=== PATIENT | female | born 1990 | race Caucasian/White ===

== ENCOUNTER 2025-01-20 07:39 | Inpatient (IN) ==
[2025-01-20] MEDS ORDERED: OXYTOCIN 30 UNITS/NSS 30 UNITS/500 ML BAG IV PRN (07:49)
[2025-01-20] MEDS ORDERED: LIDOCAINE 1% LOCAL 20 ML VIAL INFIL PRN (07:49)
[2025-01-20 08:57] LABS: Hematocrit (blood only) 37.9 % (37.0-47.0); Hemoglobin 12.9 g/dl (12.0-16.0); Mean Corpuscular Hemoglobin 29.5 pg (25.0-34.0); Mean Corpuscular Volume 86.7 fL (80.0-100.0); Platelet Count 135 K/uL (130-400); RDW Standard Deviation 41.1 fL (36.4-46.3); Red Blood Count 4.37 M/uL (4.20-5.40); White Blood Count 13.32 K/ul (4.8-10.8)
[2025-01-20] MEDS: LACTATED RINGER'S 1,000 ML IV PRN (10:03)
[2025-01-20] MEDS: OXYTOCIN 30 UNITS/NSS 30 UNITS/500 ML BAG IV PRN (10:03)
--- NOTE | 2025-01-20 10:25 | History & Physical Report ---
Date of Service January 20, 2025 Assessment & Plan (1) 40 weeks gestation of : Plan Downs bulb out Pitocin Arom when indicated Monitor tracing, category 1 Admission and Anticipated Discharge Date Admission Date: January 20, 2025 History of Present Illness Chief Complaint: IOL Primary Care Provider: YOANA Yarbrough 34 yo at 40w2d admitted for IOL for postdates. complications include Rh- mom, and Hep B non-immune. She states she had contractions about 30 minutes apart yesterday but has not had them today. Denies fluid loss and bloody show. Positive movement. She attends her OB appointments regularly. Denies taking any medications during . Downs bulb placed yesterday, removed today AM. Denies REECE, CP, SOB, LE pain. She is having some mild nausea. She had mild headaches for past few days but states it gets better when she eats and drinks water. Denies changes in vision, RUQ pain, swelling. GBS neg, RH- Allergies Allergy/AdvReac Type Severity Reaction Status Date / Time mold Allergy Congested Uncoded 01/20/25 08:06 Home Medications Medication Instructions Recorded Confirmed Type breast pump #1 ea 08/31/24 01/19/25 Rx vits no.130-ferrous fum 1 tab PO DAILY 01/20/25 01/20/25 History 27 mg iron-folic acid 800 mcg tablet ( Vitamin) Patient History Medical History Depression Anxiety Asthma RARE RES. INH USE Surgical History Status post right foot surgery screw in place S/P carpal tunnel release Hx of foot surgery BILAT bunionectomy x2 and R foot fx History of tooth extraction WISDOM TEETH Family History Father Colorectal cancer bowel cancer Hypertension Denies family history of Ovarian cancer Breast cancer Social History Smoking Status: Never smoker Second Hand Exposure: No; Do You Dip or Chew Tobacco: No; Hx Alcohol Use: No Hx Substance Use: No Preferred Language: Luxembourgish Communication Ability: Effective Machine Ii Engraver Required: No Beliefs That Will Affect Care: None marital status: marital status details: Juan Russell (37) [phone] Current Living Situation: Spouse Current Living Situation Comment: lives with spouse, cats-spouse changing litter current occupational status: employed current occupation: [employer] How many Children do You have: 0 Other Information That Helps Us Care for You: No Feels Safe at Home: Yes Safety Concerns: Feels Safe At This Time Childhood Exposure to Second-Hand Smoke: No Diet: regular caffeine: Yes Dental Care, Regularly: Yes Physical Activity Frequency: 5-6 Times per Week Seatbelt Use: always Sunscreen Use: Yes Assistive Devices: None OB History : 1 Full term: 0 Premature: 0 Total Number of Induced Abortions: 0 Total Number of Spontaneous Abortions: 0 Ectopics: 0 Multiple births: 0 Number of Living Children: 0 [employer] PRACTITIONER History Last menstrual period: Yes Menstrual reliability: definite Flow: normal Menstrual regularity: regular Monthly: Yes Age at menarche: 18 On control pills at conception: No Date of positive home test: 05/13/24 Menstrual history comments: cycles 28-29 days Details: last pap 3 years ago Review of Systems All systems reviewed & are unremarkable except as noted in HPI & below Physical Exam Constitutional: WD/WN, vitals as above Respiratory: normal respiratory effort, lungs clear to auscultation Cardiovascular: RRR, no murmur, no edema Gastrointestinal (Abdomen): normal bowel sounds, soft, nontender, no hepatosplenomegaly +gravid Skin: no rashes, warm and dry Genitourinary: per Dr. Partida Results & Data Vital Signs (Past 12 Hours) Vital Signs Temp Pulse Resp BP 01/20/25 10:06 94 H 01/20/25 10:06 122/75 01/20/25 07:55 37.3 C 20 01/20/25 07:49 109 H 127/72 Laboratory Results OB Labs: Blood Type A Negative 06/23/24 Antibody Screen NEGATIVE 10/26/24 Hgb 12.5 g/dl (12.0-16.0) 10/26/24 Hct 36.9 % (37.0-47.0) L 10/26/24 MCV 88.1 fL (80.0-100.0) 06/23/24 Plt Count 261 K/uL (130-400) 06/23/24 Rubella IgG Antibody Immune (Immune) 06/23/24 Treponema pallidum Ab Negative (Negative) 10/26/24 Hep Bs Antigen Negative (Negative) 06/23/24 Hepatitis C Antibody Negative (Negative) 06/23/24 HIV 1&2 Ab/P24 Ag 4thGn Negative (Negative) 06/23/24 Glucose 1 Hr 50 gm 122 mg/dl (70-130) 10/26/24 Maternal Serum AFP 27.8 ng/mL 08/11/24 OB Optional Labs: Chlamydia trachomatis RNA Not Detected (NotDetected) 06/23/24 Neisseria gonorrhoeae RNA Not Detected (NotDetected) 06/23/24 Thyroid Stimulating Hormone (TSH) 3.780 uIu/ml (0.300-4.500) 08/14/18 Alpha Fetoprotein Triple Screen SEE NOTE 08/11/24 Monitoring External Monitor HR: 150 Variability: moderate Accelerations: present Decelerations: absent Contractions: absent Category 1 tracing Supervising Physician Co-Signing Physician Notes Resident Physician Supervision Note: I interviewed and examined the patient. Discussed with Dr. Gibbs and agree with findings and plan as documented in the note. Any exceptions or clarifications are listed here: IOL @ 40 07/02, downs bulb out, /-3, pitocin. Plans for epidural. Documented By: Miriam Partida DO Resident Activity Tracking Resident Involvement: Resident Care Provided Care Provided: OB Delivery
[2025-01-20] MEDS ORDERED: NALOXONE HCL 1 MG in SODIUM CHLORIDE 0.9% 1,000 ML IV PRN (12:02)
[2025-01-20] MEDS ORDERED: NALBUPHINE HCL INJ 10 MG/ML AMP IV PRN (12:02)
[2025-01-20] MEDS ORDERED: BUPIVACAINE 0.25% PF 30 ML VIAL EPI PRN (12:02)
[2025-01-20] MEDS ORDERED: SODIUM CHLORIDE 0.9% PF INJ 10 ML VIAL EPI PRN (12:02)
[2025-01-20] MEDS ORDERED: ROPIVACAINE 0.5% PF 5 MG/ML 20 ML VIAL EPI PRN (12:02)
[2025-01-20] MEDS ORDERED: LIDOCAINE 2% MPF LOCAL 5 ML VIAL EPI PRN (12:02)
[2025-01-20] MEDS ORDERED: ONDANSETRON INJ 2 MG/ML 2 ML VIAL IV PRN (12:02)
[2025-01-20] MEDS ORDERED: diphenhydrAMINE 50 MG/ML VIAL IV PRN (12:02)
[2025-01-20] MEDS ORDERED: NALOXONE HCL 0.4 MG/1 ML VIAL/CARP IV PRN (12:02)
--- NOTE | 2025-01-20 12:02 | Anesthesiology Consultation ---
Date of Service January 20, 2025 Assessment & Plan ASA ASA2 Proposed Anesthesia Anesthesia Type: Labor Epidural Risk / Benefits Reviewed With: PT / POA / Parent / Guardian, Accepts Plan and Informed Consent Obtained History Height/Weight Height: 5 ft 2 in Weight: 94.801 kg Allergies Allergy/AdvReac Type Severity Reaction Status Date / Time mold Allergy Congested Uncoded 01/20/25 08:06 Medications Home Medications Medication Instructions Recorded Confirmed Last Taken breast pump #1 ea 08/31/24 01/19/25 Unknown vits no.130-ferrous fum 1 tab PO DAILY 01/20/25 01/20/25 01/19/25 12:00 27 mg iron-folic acid 800 mcg tablet ( Vitamin) Active Medications Generic Name Dose Route Start Last Admin Trade Name Freq PRN Reason Stop Dose Admin Oxytocin 30 units in 500 mls @ 5 mls/hr 01/20/25 07:49 01/20/25 11:15 Pitocin 30 Units/Nss IV 01/23/25 07:48 0.3 units/hr .Q24H PRN 5 mls/hr Labor Induction/Augmentation Titration Protocol 0.3 UNITS/HR Lactated Ringer's 1,000 mls @ 125 mls/hr 01/20/25 07:49 01/20/25 10:03 Lr IV 01/22/25 07:48 125 mls/hr .Q8H PRN Administration L&D Protocol Protocol Past Medical History Medical History Depression Anxiety Asthma RARE RES. INH USE Exercise / Class Metabolic Activity II 4-5 Yardwork/Stairs/Walk up hill Past Family History Family History Father Colorectal cancer bowel cancer Hypertension Denies family history of Ovarian cancer Breast cancer Past Surgical History Surgical History Status post right foot surgery screw in place S/P carpal tunnel release Hx of foot surgery BILAT bunionectomy x2 and R foot fx History of tooth extraction WISDOM TEETH Past Anesthesia History No Hx of Anesthesia Complications and No Family Hx of Anesthesia Complications History of PONV No Hx of PONV and No Hx of Motion Sickness Social History Smoking Status: Never smoker Do You Dip or Chew Tobacco: No Hx Alcohol Use: No alcohol intake frequency: a few times a month Hx Substance Use: No substance use type: does not use Substance Use Type Other:: DAILY USE /ADVISED Review of Systems denies fever/cough/ colds/ chest pain/ SOB/ SANDIE denies SANDIE Physical Exam Vital Signs Last Vital Signs Temp 37.0 C 01/20/25 13:17 Pulse 69 01/20/25 14:51 Resp 20 01/20/25 13:17 BP 122/71 01/20/25 14:47 Pulse Ox 99 01/20/25 14:51 ENMT Mouth: no TMJ abnormality and no dentition abnormality Thyromental Distance: > or= 3.5 Finger Breadths Mallampati Class: II Neck neck extension not limited Respiratory normal respiratory effort; no respiratory distress Auscultation: lungs clear to auscultation bilaterally Cardiovascular Rate/Rhythm: regular rate and regular rhythm Neurologic moves all extremities Psychiatric Orientation: alert and oriented x 3 Testing Laboratory Results 01/20/25 08:23 Blood Type A Negative 01/20/25 08:23 Antibody Screen NEGATIVE 01/20/25 08:23
[2025-01-20] MEDS: LIDOCAINE 2%/EPINEPHRINE 1:200,000 20 ML PF ONE (12:34)
[2025-01-20] MEDS: BUPIVACAINE 0.25% PF 30 ML VIAL EPI STA (12:34)
[2025-01-20] MEDS: BUPIVACAINE 0.25% PF 30 ML VIAL ONE (12:34)
[2025-01-20] MEDS: LIDOCAINE 2%/EPINEPHRINE 1:200,000 20 ML PF EPI STA (12:35)
[2025-01-20] MEDS: SODIUM CHLORIDE 0.9% PF INJ 10 ML VIAL EPI STA (12:35)
[2025-01-20] MEDS: fentANYL 2 MCG/ML BUPIVacaine 0.125%-NSS 100ML BAG ONE (12:36)
--- NOTE | 2025-01-20 13:22 | Labor Progress Brief Note ---
Date of Service January 20, 2025 Subjective Comfortable with epidural. FHT Cat 1 [facility] Q 2 SVE 4-5/80/-2 AROM clear fluid. Assessment & Plan Admission and Anticipated Discharge Date Admission Date: January 20, 2025 Results & Data Vital Signs (Past 12 Hours) Vital Signs Temp Pulse Resp BP Pulse Ox 01/20/25 13:17 89 L 01/20/25 13:17 86 01/20/25 13:16 99 01/20/25 13:16 94 H 01/20/25 13:11 100 01/20/25 13:11 82 01/20/25 13:06 99 01/20/25 13:06 80 01/20/25 13:01 100 01/20/25 13:01 87 01/20/25 12:59 81 01/20/25 12:59 120/70 01/20/25 12:56 98 01/20/25 12:56 96 H 01/20/25 12:54 82 01/20/25 12:54 122/60 01/20/25 12:51 99 01/20/25 12:51 83 01/20/25 12:48 95 H 01/20/25 12:48 115/64 01/20/25 12:46 99 01/20/25 12:46 87 01/20/25 12:45 83 01/20/25 12:45 113/67 01/20/25 12:41 99 01/20/25 12:41 80 01/20/25 12:37 83 01/20/25 12:37 123/58 L 01/20/25 12:36 100 01/20/25 12:36 87 01/20/25 12:35 80 01/20/25 12:35 120/63 01/20/25 12:33 91 H 01/20/25 12:33 120/63 01/20/25 12:31 100 01/20/25 12:31 84 01/20/25 12:31 111/55 L 01/20/25 12:27 97 H 01/20/25 12:27 123/73 01/20/25 12:26 100 01/20/25 12:26 90 01/20/25 12:21 100 01/20/25 12:21 79 01/20/25 12:16 100 01/20/25 12:16 85 01/20/25 12:14 86 01/20/25 12:14 121/76 01/20/25 11:22 90 01/20/25 11:22 115/61 01/20/25 10:06 94 H 01/20/25 10:06 122/75 01/20/25 07:55 37.3 C 20 01/20/25 07:49 109 H 127/72 Coding Level of Care Code None
[2025-01-20] MEDS: SODIUM CHLORIDE 0.9% PF INJ 10 ML VIAL ONE (15:03)
[2025-01-20] MEDS: fentANYL 2 MCG/ML BUPIVacaine 0.125%-NSS 100ML BAG EPI PRN (18:48)
[2025-01-20] MEDS: CALCIUM CARBONATE 500 MG CHEWABLE TAB PO PRN (20:50)
--- NOTE | 2025-01-20 23:13 | Labor Progress Brief Note ---
Date of Service January 20, 2025 Subjective Comfortable with epidural. FHT Cat 1 Show Low Q 2 Not feeling urge to push yet. Assessment & Plan Admission and Anticipated Discharge Date Admission Date: January 20, 2025 Results & Data Vital Signs (Past 12 Hours) Vital Signs Temp Pulse Resp BP Pulse Ox O2 Del Method 01/20/25 23:06 100 01/20/25 23:06 100 H 01/20/25 23:04 99 H 01/20/25 23:04 120/75 01/20/25 23:01 100 01/20/25 23:01 93 H 01/20/25 22:56 97 01/20/25 22:56 95 H 01/20/25 22:51 97 01/20/25 22:51 95 H 01/20/25 22:49 96 H 01/20/25 22:49 134/78 01/20/25 22:46 99 01/20/25 22:46 94 H 01/20/25 22:41 98 01/20/25 22:41 94 H 01/20/25 22:36 98 01/20/25 22:36 99 H 01/20/25 22:34 95 H 01/20/25 22:34 140/74 01/20/25 22:31 96 01/20/25 22:31 98 H 01/20/25 22:26 98 01/20/25 22:26 99 H 01/20/25 22:21 99 01/20/25 22:21 95 H 01/20/25 22:18 107 H 01/20/25 22:18 138/66 01/20/25 22:16 99 01/20/25 22:16 91 H 01/20/25 22:11 96 01/20/25 22:11 102 H 01/20/25 22:06 97 01/20/25 22:06 94 H 01/20/25 22:03 96 H 01/20/25 22:03 151/69 H 01/20/25 22:01 98 01/20/25 22:01 103 H 01/20/25 22:00 18 01/20/25 22:00 18 01/20/25 21:56 99 01/20/25 21:56 89 01/20/25 21:51 100 01/20/25 21:51 101 H 01/20/25 21:49 99 H 01/20/25 21:49 142/70 H 01/20/25 21:46 100 01/20/25 21:46 98 H 01/20/25 21:41 99 01/20/25 21:41 102 H 01/20/25 21:36 100 01/20/25 21:36 109 H 01/20/25 21:33 90 01/20/25 21:33 132/73 01/20/25 21:31 99 01/20/25 21:31 98 H 01/20/25 21:26 98 01/20/25 21:26 95 H 01/20/25 21:21 100 01/20/25 21:21 99 H 01/20/25 21:18 103 H 01/20/25 21:18 136/82 01/20/25 21:16 99 01/20/25 21:16 98 H 01/20/25 21:11 98 01/20/25 21:11 102 H 01/20/25 21:08 18 01/20/25 21:08 37.3 C 18 01/20/25 21:06 99 01/20/25 21:06 102 H 01/20/25 21:03 102 H 01/20/25 21:03 138/81 01/20/25 21:01 99 01/20/25 21:01 101 H 01/20/25 20:56 98 01/20/25 20:56 104 H 01/20/25 20:51 98 01/20/25 20:51 145 H 01/20/25 20:49 97 H 01/20/25 20:49 144/76 H 01/20/25 20:46 100 01/20/25 20:46 99 H 01/20/25 20:41 99 01/20/25 20:41 109 H 01/20/25 20:36 99 01/20/25 20:36 112 H 01/20/25 20:34 104 H 01/20/25 20:34 136/80 01/20/25 20:31 98 01/20/25 20:31 98 H 01/20/25 20:26 99 01/20/25 20:26 121 H 01/20/25 20:21 99 01/20/25 20:21 112 H 01/20/25 20:20 92 01/20/25 20:20 118 H 01/20/25 20:19 110 H 01/20/25 20:19 125/71 01/20/25 20:16 100 01/20/25 20:16 109 H 01/20/25 20:11 98 01/20/25 20:11 97 H 01/20/25 20:06 98 01/20/25 20:06 95 H 01/20/25 20:02 85 01/20/25 20:02 109/57 L 01/20/25 20:01 99 01/20/25 20:01 86 01/20/25 20:00 18 01/20/25 20:00 18 01/20/25 19:56 99 01/20/25 19:56 79 01/20/25 19:51 98 01/20/25 19:51 77 01/20/25 19:48 86 01/20/25 19:48 108/55 L 01/20/25 19:46 99 01/20/25 19:46 79 01/20/25 19:41 98 01/20/25 19:41 91 H 01/20/25 19:36 99 01/20/25 19:36 93 H 01/20/25 19:33 91 H 01/20/25 19:33 123/74 01/20/25 19:31 98 01/20/25 19:31 89 01/20/25 19:26 99 01/20/25 19:26 82 01/20/25 19:21 100 01/20/25 19:21 100 H 01/20/25 19:19 91 H 01/20/25 19:19 136/63 01/20/25 19:16 99 01/20/25 19:16 94 H 01/20/25 19:15 Room Air 01/20/25 19:11 99 01/20/25 19:11 75 01/20/25 19:06 100 01/20/25 19:06 79 01/20/25 19:05 36.5 C 18 01/20/25 19:05 18 01/20/25 19:05 36.5 C 18 01/20/25 19:03 81 01/20/25 19:03 117/58 L 01/20/25 19:01 100 01/20/25 19:01 81 01/20/25 18:56 100 01/20/25 18:56 76 01/20/25 18:51 97 01/20/25 18:51 79 01/20/25 18:48 78 01/20/25 18:48 110/61 01/20/25 18:46 98 01/20/25 18:46 88 01/20/25 18:41 97 01/20/25 18:41 89 01/20/25 18:36 97 01/20/25 18:36 86 01/20/25 18:33 86 01/20/25 18:33 121/67 01/20/25 18:31 98 01/20/25 18:31 85 01/20/25 18:26 96 01/20/25 18:26 85 01/20/25 18:21 98 01/20/25 18:21 86 01/20/25 18:18 85 01/20/25 18:18 130/71 01/20/25 18:16 20 01/20/25 18:16 20 01/20/25 18:16 97 01/20/25 18:16 88 01/20/25 18:11 96 01/20/25 18:11 83 01/20/25 18:06 95 01/20/25 18:06 81 01/20/25 18:03 90 01/20/25 18:03 122/71 01/20/25 18:01 95 01/20/25 18:01 82 01/20/25 17:56 97 01/20/25 17:56 86 01/20/25 17:51 95 01/20/25 17:51 85 01/20/25 17:49 79 01/20/25 17:49 130/74 01/20/25 17:46 20 01/20/25 17:46 20 01/20/25 17:46 98 01/20/25 17:46 85 01/20/25 17:41 97 01/20/25 17:41 94 H 01/20/25 17:36 98 01/20/25 17:36 91 H 01/20/25 17:32 88 01/20/25 17:32 119/58 L 01/20/25 17:31 96 01/20/25 17:31 86 01/20/25 17:26 96 01/20/25 17:26 89 01/20/25 17:21 98 01/20/25 17:21 88 01/20/25 17:18 85 01/20/25 17:18 121/61 01/20/25 17:16 97 01/20/25 17:16 93 H 01/20/25 17:11 97 01/20/25 17:11 83 01/20/25 17:06 97 01/20/25 17:06 81 01/20/25 17:03 85 01/20/25 17:03 118/70 01/20/25 17:01 97 01/20/25 17:01 88 01/20/25 16:56 98 01/20/25 16:56 86 01/20/25 16:51 98 01/20/25 16:51 101 H 01/20/25 16:48 99 H 01/20/25 16:48 123/78 01/20/25 16:46 20 01/20/25 16:46 20 01/20/25 16:46 98 01/20/25 16:46 95 H 01/20/25 16:41 98 01/20/25 16:41 88 01/20/25 16:36 99 01/20/25 16:36 84 01/20/25 16:33 79 01/20/25 16:33 133/73 01/20/25 16:31 99 01/20/25 16:31 89 01/20/25 16:26 98 01/20/25 16:26 87 01/20/25 16:21 98 01/20/25 16:21 87 01/20/25 16:19 78 01/20/25 16:19 113/60 01/20/25 16:16 20 01/20/25 16:16 20 01/20/25 16:16 99 01/20/25 16:16 84 01/20/25 16:11 99 01/20/25 16:11 91 H 01/20/25 16:06 99 01/20/25 16:06 87 01/20/25 16:03 78 01/20/25 16:03 119/71 01/20/25 16:01 99 01/20/25 16:01 84 01/20/25 15:56 99 01/20/25 15:56 82 01/20/25 15:51 100 01/20/25 15:51 91 H 01/20/25 15:49 81 01/20/25 15:49 115/69 01/20/25 15:46 20 01/20/25 15:46 20 01/20/25 15:46 96 01/20/25 15:46 77 01/20/25 15:41 96 01/20/25 15:41 86 01/20/25 15:36 100 01/20/25 15:36 76 01/20/25 15:33 83 01/20/25 15:33 119/63 01/20/25 15:31 99 01/20/25 15:31 82 01/20/25 15:26 100 01/20/25 15:26 84 01/20/25 15:21 99 01/20/25 15:21 80 01/20/25 15:19 90 01/20/25 15:19 120/64 01/20/25 15:16 20 01/20/25 15:16 20 01/20/25 15:16 100 01/20/25 15:16 85 01/20/25 15:11 98 01/20/25 15:11 69 01/20/25 15:06 98 01/20/25 15:06 68 01/20/25 15:03 77 01/20/25 15:03 120/70 01/20/25 15:01 98 01/20/25 15:01 78 01/20/25 14:56 100 01/20/25 14:56 73 01/20/25 14:51 99 01/20/25 14:51 69 01/20/25 14:47 71 01/20/25 14:47 122/71 01/20/25 14:46 20 01/20/25 14:46 20 01/20/25 14:46 98 01/20/25 14:46 67 01/20/25 14:41 100 01/20/25 14:41 75 01/20/25 14:36 99 01/20/25 14:36 67 01/20/25 14:33 71 01/20/25 14:33 124/71 01/20/25 14:31 100 01/20/25 14:31 69 01/20/25 14:26 99 01/20/25 14:26 68 01/20/25 14:21 99 01/20/25 14:21 76 01/20/25 14:19 75 01/20/25 14:19 139/69 01/20/25 14:16 20 01/20/25 14:16 20 01/20/25 14:16 99 01/20/25 14:16 91 H 01/20/25 14:11 100 01/20/25 14:11 70 01/20/25 14:06 99 01/20/25 14:06 70 01/20/25 14:02 78 01/20/25 14:02 108/58 L 01/20/25 14:01 99 01/20/25 14:01 75 01/20/25 13:56 100 01/20/25 13:56 76 01/20/25 13:51 99 01/20/25 13:51 80 01/20/25 13:48 77 01/20/25 13:48 106/59 L 01/20/25 13:46 20 01/20/25 13:46 20 01/20/25 13:46 100 01/20/25 13:46 79 01/20/25 13:41 100 01/20/25 13:41 79 01/20/25 13:36 83 01/20/25 13:36 99 01/20/25 13:33 75 01/20/25 13:33 106/55 L 01/20/25 13:31 100 01/20/25 13:31 71 01/20/25 13:26 99 01/20/25 13:26 81 01/20/25 13:21 100 01/20/25 13:21 94 H 01/20/25 13:17 20 01/20/25 13:17 37.0 C 20 01/20/25 13:17 89 L 01/20/25 13:17 86 01/20/25 13:16 99 01/20/25 13:16 94 H 01/20/25 13:11 100 01/20/25 13:11 82 01/20/25 13:06 99 01/20/25 13:06 80 01/20/25 13:01 20 01/20/25 13:01 20 01/20/25 13:01 100 01/20/25 13:01 87 01/20/25 12:59 81 01/20/25 12:59 120/70 01/20/25 12:56 98 01/20/25 12:56 96 H 01/20/25 12:54 82 01/20/25 12:54 122/60 01/20/25 12:51 99 01/20/25 12:51 83 01/20/25 12:48 95 H 01/20/25 12:48 115/64 01/20/25 12:46 20 01/20/25 12:46 20 01/20/25 12:46 99 01/20/25 12:46 87 01/20/25 12:45 83 01/20/25 12:45 113/67 01/20/25 12:41 99 01/20/25 12:41 80 01/20/25 12:37 83 01/20/25 12:37 123/58 L 01/20/25 12:36 100 01/20/25 12:36 87 01/20/25 12:35 80 01/20/25 12:35 120/63 01/20/25 12:33 91 H 01/20/25 12:33 120/63 01/20/25 12:31 100 01/20/25 12:31 84 01/20/25 12:31 111/55 L 01/20/25 12:27 97 H 01/20/25 12:27 123/73 01/20/25 12:26 100 01/20/25 12:26 90 01/20/25 12:21 100 01/20/25 12:21 79 01/20/25 12:16 100 01/20/25 12:16 85 01/20/25 12:14 86 01/20/25 12:14 121/76 01/20/25 11:22 90 01/20/25 11:22 115/61 Coding Level of Care Code None
--- NOTE | 2025-01-21 01:19 | Delivery Summary ---
Vaginal Delivery Summary Date of Service January 21, 2025 Vaginal Delivery Summary and 2nd Degree LAC Vaginal Delivery Summary: Pre-delivery diagnoses: 34yo @ 40 3/7, IOL Post-delivery diagnoses: same Procedure: spontaneous vaginal delivery Surgeon: Miriam Partida DO Complications: none Findings: Viable female . Apgars: 6/9 . Weight pending, please see nursery records Estimated QBL: 57cc Description of delivery: The patient progressed to complete with epidural anesthesia. She then began to push. She spontaneously vaginally delivered a viable from the cephalic presentation. The head delivered in JENNA position. The anterior shoulder delivered, followed by the posterior shoulder, followed by the body. No nuchal. The baby was placed on mother's abdomen and a spontaneous cry was heard. The cord was doubly clamped and cut. A segment was retained for cord gases. Cord blood was obtained. The placenta was delivered spontaneously intact with a 3-vessel cord. The uterus and vagina were swept of clots and debris. IV pitocin was given. The uterus became firm. The cervix, vagina, and perineum were inspected and 2nd degree perineal laceration noted and repaired with 3-0 Vicryl. Excellent hemostasis was observed. The mother and baby are recovering in stable and good condition in the room. Sponge, needle and instrument counts were correct x 2. Miriam Partida DO [facility] Vaginal Delivery Charge Vaginal Delivery Codes: 47160 global code for the antepartum, delivery, and post- Delivery Type Details: and 2nd Degree LAC
[2025-01-21] MEDS ORDERED: HYDROCORTISONE ACETATE 25 MG SUPP PR PRN (01:49)
[2025-01-21] MEDS ORDERED: OXYTOCIN 30 UNITS/NSS 30 UNITS/500 ML BAG IV PRN (01:49)
[2025-01-21] MEDS: DIPHTHER/TETAN/PERTUS Vaccine (Tdap, Adol/Adult) 0.5mL IM ONE (01:52)
[2025-01-21] MEDS: ACETAMINOPHEN 325 MG TAB PO PRN (02:12)
[2025-01-21] MEDS: IBUPROFEN 600 MG TAB PO PRN (04:13)
[2025-01-21] MEDS: BENZOCAINE 20% SPRY 85 APPLN/85 GM CAN EXT PRN (04:14)
[2025-01-21 07:49] LABS: Base Excess Cord Arterial Bld -5.8 mEq/L (-9-1.8); Base Excess Cord Venous Blood -3.1 mEq/L (-7.7-1.9); CO2 Cord Arterial Blood 59 mmHg (39.1-73.5); Cord Venous Blood PO2 35 mmHg (14.1-43.3); HCO3 Cord Arterial Blood 23 mmol/L (19.7-28.5); O2 Saturation Cord Venous Bld 71.3 % (<68); Oxygen Sat Cord Arterial Blood < 60.0 % (<60); PO2 Cord Arterial Blood 30 mmHg (4.1-31.7); pH Cord Arterial Blood 7.20 (7.1-7.38)
[2025-01-21] MEDS: PRENATAL VITAMIN 1 TAB PO SCH (08:05)
[2025-01-21] MEDS: DOCUSATE SODIUM 100 MG CAP PO SCH (08:05)
--- NOTE | 2025-01-21 08:33 | Anesthesia Procedure Note ---
Date of Service January 21, 2025 Anesthesia Post Epidural Note Vital Signs Vital Signs: Temp Pulse Resp BP Pulse Ox O2 Del Method 36.5 C 73 16 93/58 L 99 Room Air 01/21/25 08:00 01/21/25 08:00 01/21/25 08:00 01/21/25 08:00 01/21/25 08:00 01/21/25 08:00 Pain Intensity Bilateral Abdomen: Pain Intensity: 1 Bilateral Episiotomy/Laceration: Pain Intensity: 3 Notes Mental Status: alert / awake / arousable Nausea / Vomiting: adequately controlled Pain: adequately controlled Airway Patency, RR, SpO2: stable & adequate BP & HR: stable & adequate Hydration State: stable & adequate Neuraxial Anesthesia: was administered and sensory block is resolving Anesthetic Complications: no major complications apparent Epidural: Removed without complications and With tip intact
[2025-01-21 20:08] VITALS: RESP 18; O2SAT 97
--- NOTE | 2025-01-22 07:24 | Obstetrical Progress Note ---
Date of Service January 22, 2025 Assessment & Plan (1) care following vaginal delivery: Plan 34 yo post- day 1 s/p Feels well today. Vital signs stable Continue post- care Encourage ambulation and Pain controlled with ibuprofen Hgb stable Discharge home today, follow up with Dr. Partida in 6 weeks. Subjective 34 yo post- day 1 s/p Ambulation: ambulating normally Voiding: no voiding problems Passing Gas:: Yes Passing Stool:: No Diet Tolerance:: regular diet Lochia:: Small Feeding Type:: breast feeding Current Pain Level: 3/10 Resting comfortably this AM in NAD. Denies REECE, CP, SOB, N/V/D, LE pain/swelling. Review of Systems All systems reviewed & are unremarkable except as noted in HPI & below Physical Exam General: patient resting comfortably, NAD, non-toxic in appearance, AA&O x 4, answers questions appropriately. Skin: warm, dry, intact HEENT: NC/AT, anicteric sclera, conjunctiva without injection, moist mucus membranes. Heart: +S1/S2, regular, no m/r/g Lungs: equal air entry bilaterally, no rales/rhonchi/wheezes Abd: +BS, soft, NT/ND, uterine fundus firm 1 FB below umbilicus Ext: warm, no clubbing/cyanosis or edema, Amy's neg. Neuro: nonfocal, patient AA&O x 4, speech intact, no facial droop, moving all extremities on command. Results & Data Vital Signs (Past 12 Hours) Vital Signs Temp Pulse Resp BP O2 Del Method 01/22/25 00:05 37.2 C 81 18 114/74 Room Air Laboratory Results OB Labs: Blood Type A Negative 06/23/24 Antibody Screen NEGATIVE 10/26/24 Hgb 12.5 g/dl (12.0-16.0) 10/26/24 Hct 36.9 % (37.0-47.0) L 10/26/24 MCV 88.1 fL (80.0-100.0) 06/23/24 Plt Count 261 K/uL (130-400) 06/23/24 Rubella IgG Antibody Immune (Immune) 06/23/24 Treponema pallidum Ab Negative (Negative) 10/26/24 Hep Bs Antigen Negative (Negative) 06/23/24 Hepatitis C Antibody Negative (Negative) 06/23/24 HIV 1&2 Ab/P24 Ag 4thGn Negative (Negative) 06/23/24 Glucose 1 Hr 50 gm 122 mg/dl (70-130) 10/26/24 Maternal Serum AFP 27.8 ng/mL 08/11/24 OB Optional Labs: Chlamydia trachomatis RNA Not Detected (NotDetected) 06/23/24 Neisseria gonorrhoeae RNA Not Detected (NotDetected) 06/23/24 Thyroid Stimulating Hormone (TSH) 3.780 uIu/ml (0.300-4.500) 08/14/18 Alpha Fetoprotein Triple Screen SEE NOTE 08/11/24 Resident Activity Tracking Resident Involvement: Resident Care Provided Care Provided: OB Delivery
[2025-01-22 07:50] VITALS: BP 109/70; TEMP 98.2
[2025-01-22 07:56] LABS: Hematocrit (blood only) 30.6 % (37.0-47.0); Hemoglobin 10.1 g/dl (12.0-16.0)
[2025-01-22 11:34] VITALS: PULSE 81
== END 2025-01-22 14:04 | disposition home or self-care (01) | DRG 807 ==
LOC: 4S1 07:39 → 4E2 01-21 03:56